=== PATIENT | male | born 1965 | race Caucasian/White ===

== ENCOUNTER → 2016-10-10 | Day surgery (SDC) | payer OTHER ==
[2016-10-08 15:21] VITALS: BMI 26.6
[~2016-10-10] MED LIST: PROPOFOL 20 ML ONE
[2016-10-10 11:14] VITALS: TEMP 98.3
[2016-10-10 12:23] VITALS: BP 138/89; PULSE 79
--- NOTE | 2016-10-16 09:09 | PATH ---
Surgical Pathology Report Patient Name: TISHA CRUZ [facility]. Rec. #: [id number] /Age/Gender: 1965 (Age: 51) / M Account: [id number] Location: [facility]-ENDOSCOPY Taken: 10/10/2016 Received: 10/10/2016 Reported: 10/16/2016 Physicians: Vivian Faustin M.D. Specimen(s) Received A: SECOND PORTION DUODENUM/THICKENED FOLD B: BX DUODENAL BULB POLYP C: BX ANTRUM D: BX GE JUNCTION Clinical History GERD Gastritis, second portion duodenal polyp Final Diagnosis A. SECOND PORTION DUODENUM/THICKENED FOLD, BIOPSY: CHRONIC DUODENITIS WITH FARA'S GLAND HYPERPLASIA. B. DUODENAL BULB POLYP, BIOPSY: POLYPOID DUODENAL MUCOSA SHOWING DUODENITIS WITH FOCAL GASTRIC METAPLASIA, VILLOUS BLUNTING AND FARA'S GLAND HYPERPLASIA. C. ANTRUM, BIOPSY: MILD CHRONIC GASTRITIS. IMMUNOSTAIN IS NEGATIVE FOR H. PYLORI ORGANISMS. D. GE JUNCTION, BIOPSY: GASTRIC CARDIA-TYPE MUCOSA SHOWING MILD CHRONIC INFLAMMATION. NO INTESTINAL METAPLASIA IS IDENTIFIED. Electronically Signed Carly Ratliff M.D. Gross Description A. Received in formalin, labeled "second portion duodenum/thickened fold" is a jones, irregular portion of soft tissue measuring 0.3 cm. in greatest dimension. The specimen is submitted in toto in one cassette. B. Received in formalin, labeled "duodenal bulb polyp" is a jones, irregular portion of soft tissue measuring 0.4 cm. in greatest dimension. The specimen is submitted in toto in one cassette. C. Received in formalin, labeled "antrum" is a jones, irregular portion of soft tissue measuring 0.3 cm. in greatest dimension. The specimen is submitted in toto in one cassette. D. Received in formalin, labeled "GE junction" is a jones, irregular portion of soft tissue measuring 0.4 cm. in greatest dimension. The specimen is submitted in toto in one cassette. [facility]/10/10/2016 psychiatric/10/10/2016
== END | disposition home or self-care (01) ==
LOC: FASU-ENDO 10:50
PROVIDERS: ATTEND Internal Medicine Gastroenterology
PROC: 0DB58ZX Excision of Esophagus, Via Natural or Artificial Opening Endoscopic, Diagnostic (ICD-10-PCS; 2016-10-10)
PROC: 0DB98ZX Excision of Duodenum, Via Natural or Artificial Opening Endoscopic, Diagnostic (ICD-10-PCS; principal; 2016-10-10 11:30)
PROC: 0DB68ZX Excision of Stomach, Via Natural or Artificial Opening Endoscopic, Diagnostic (ICD-10-PCS; 2016-10-10 11:30)
DX: Z04.8 Encounter for examination and observation for other specified reasons (principal); K29.50 Unspecified chronic gastritis without bleeding; K29.80 Duodenitis without bleeding; K31.89 Other diseases of stomach and duodenum; K52.9 Noninfective gastroenteritis and colitis, unspecified
CPT/HCPCS: 88305-TC; 88342-TC

== ENCOUNTER 2021-01-06 15:18 | Emergency (ER) | payer OTHER ==
[2021-01-06 16:01] VITALS: BP 147/93; PULSE 66; TEMP 97.9; BMI 25.5
[2021-01-06] MEDS ORDERED: DEXAMETHASONE SOD PHOSPHATE 10 MG/1 ML VIAL IVPUSH ONE (16:26)
[2021-01-06] MEDS ORDERED: ACETAMINOPHEN 1000 MG/100 ML VIAL IVPB ONE (16:26)
[2021-01-06] MEDS ORDERED: KETOROLAC TROMETHAMINE 15 MG/ML VIAL ONE (16:56)
[2021-01-06] MEDS ORDERED: ACETAMINOPHEN INJECTION 100 ML IVPB ONE (16:56)
[2021-01-06] MEDS ORDERED: DEXAMETHASONE SOD PHOSPHATE 10 MG/1 ML VIAL ONE (16:56)
[2021-01-06] MEDS ORDERED: KETOROLAC TROMETHAMINE 30 MG/1 ML VIAL IVPUSH ONE (17:01)
== END 2021-01-06 19:55 | disposition home or self-care (01) ==
LOC: JER 15:18
PROC: 3E0333Z Introduction of Anti-inflammatory into Peripheral Vein, Percutaneous Approach (ICD-10-PCS; principal; 2021-01-06)
PROC: 3E033GC Introduction of Other Therapeutic Substance into Peripheral Vein, Percutaneous Approach (ICD-10-PCS; 2021-01-06)
PROC: 3E0333Z Introduction of Anti-inflammatory into Peripheral Vein, Percutaneous Approach (ICD-10-PCS; 2021-01-06)
DX: M25.551 Pain in right hip (principal); W01.0XXA Fall on same level from slipping, tripping and stumbling without subsequent striking against object, initial encounter; W50.0XXA Accidental hit or strike by another person, initial encounter; Y93.66 Activity, soccer
CPT/HCPCS: 99284-25; J0131; J1100